=== PATIENT | male | born 1960 | race Caucasian/White ===

== ENCOUNTER 2019-05-16 10:40 | Outpatient (CLI) | payer OTHER, SELFPAY ==
--- NOTE | 2019-05-16 11:21 | XR_ITS ---
WS: [id number] Left shoulder, 2 views, today Clinical Data: PAIN Comparison: None. Findings: No fractures or dislocations are seen. The AC joint is normal. The adjacent left clavicle, left scapu la and ribs are normal. The soft tissues are unremarkable. XR/XR shoulder LT min 2V* [id number] Impression: Negative left shoulder.
--- NOTE | 2019-05-16 11:21 | XR_ITS ---
WS: [id number] FOOT LEFT TECHNIQUE: 2 views of the left foot CLINICAL INFORMATION: PAIN COMPARISON: None. FINDINGS: Osteopenia. Normal anatomic alignment. No acute fractures. Soft tissue edema. Tiny Achilles and plant ar calcaneal spurring. Vascular calcification. XR/XR foot LT 2V [id number] IMPRESSION: Osteopenia. No acute fractures
== END 2019-05-16 10:41 | disposition home or self-care (01) ==
LOC: RAD 10:46
PROVIDERS: Family Provider Nurse Practitioner; Visit Provider Dermatology
DX: M85.872 Other specified disorders of bone density and structure, left ankle and foot (principal); M25.512 Pain in left shoulder; M79.672 Pain in left foot
CPT/HCPCS: 73030; 73620

== ENCOUNTER 2019-09-12 14:14 | Day surgery (SDC) | payer SELFPAY ==
[2019-09-12] VITALS (7 sets, daily range): BP systolic 114–170; BP diastolic 66–104; PULSE 72–89; RESP 16–18; TEMP 36.2–37.3; O2SAT 97–100; BMI 23.7
--- NOTE | 2019-09-12 | SC_ITS ---
WS: [id number] C-arm FL for Urology REASON FOR EXAM: BILAT STENTS///C ARM PICS FINDINGS: Bilateral stent placements. In the mid ureter on the right there appears to be a density consistent with a stone. On the left side there is a stone seen at the pelvis of the kidney. SC/C-arm FL for Urology IMPRESSION: Stent placement and retrograde studies. Stones in the mid right kidney and left pelvis of the kidney.
--- NOTE | 2019-09-12 | SCC_ITS ---
Procedure Done: 1. Cystoscopy with bilateral ureteral stent placement 2. Bilateral retrograde ureteral pyelograms 62.5 seconds of fluoroscopic guidance, for a cumulative dose of 12.38 mGy, was provided to Dr. Siegel by the radiology department. C-arm images of the abdomen were saved for the patient's permanent record. [facility]
--- NOTE | 2019-09-12 14:57 | CT_ITS ---
WS: [id number] CT kidney stone 02622 REASON FOR EXAM: abdominal pain R>L; hx kidney stones IV CONTRAST ADMINISTERED: None. TOTAL EXAM DLP: 1119.[address] scans at [facility] use at least one of these dose optimization techniques: automat ed exposure control; mA and/or kV adjustment per patient size (includes targeted exams where dose is matched to clinical indication); or iterative reconstruction. FINDINGS: Both kidneys are dilated. Both kidneys show calcification along the pelvis and both kidneys and both kidneys show obstructive changes in the ureters the left ureter is dilated greater than the right a stone is seen measured 0.46 cm and on the right side a stone measures 0.01 cm. In the left r enal pelvis a stone measures 8.76 mm is noted. On the right stone measures 7.07 mm. The upper abdomen shows normal appearance of the liver, stomach, spleen, gallbladder, pancreas, right left adrenal glands. The aorta inferior vena cava were normal. CT/CT kidney stone [id number] IMPRESSION: Bilateral obstructive uropathy A large stone is seen in both ureters Both kidneys shows stones.
--- NOTE | 2019-09-12 14:58 | ED_ITS ---
Documented by User: JADE Iverson 09/15/19 07:05 HPI - Abdominal Pain General: Chief Complaint: Abdominal Pain Stated Complaint: possible kidney stone Time Seen by Provider: 09/12/19 14:51 Source: patient Mode of arrival: ambulatory Limitations: no limitations History of Present Illness: HPI narrative: Patient is a 59-year-old male who presents to ED today with a complaint of a probable kidney stone. Patient states he has passed several stones since last month. Patient has pictures of all of the stones. Patient believes it is related to his recent Zonegran that he was placed on. Patient states today he began noticing blood in his urine and began having severe right-sided abdominal pains. He is having trouble urinating due to the discomfort. Has not been running fevers. Reports no vomiting or changes in bowel movements. Associated Symptoms: Reports dysuria and hematuria; Denies chills, diarrhea, fever(s), heartburn, nausea, syncope and vomiting Review of Systems Const: Denies: fever, chills or body aches Eyes: Denies: change in vision or blurry vision Card: Denies: chest pain, palpitations, irregular heart rhythm, lightheadedness, syncope or shortness of breath on exertion Resp: Denies: shortness of breath, productive cough or pain on inspiration GI: Reports: abdominal pain; Denies: nausea, vomiting, heartburn/indigestion or diarrhea : Reports: flank pain, difficulty urinating, painful urination, urinary urgency, urinary hesitancy and blood in urine; Denies: urinary frequency, genital pain, genital lesion, penile discharge, testicular pain or scrotal swelling Musc: Denies: neck pain, back pain (flank pain) or joint pain Skin/Breast: Denies: rash Neuro: Denies: headache, numbness in extremities, weakness in extremities or changes in sensation PFS ED PFSH: Medical History (Updated 09/12/19 @ 18:52 by Satya Ryder MD) Seizures Urolithiasis Social History Smoking and tobacco status: never smoked Physical Exam Const: COMMON NORMALS: average body habitus, oriented x3, no limitations, healthy appearing, alert and well nourished GENERAL APPEARANCE: in distress (appears very uncomfortable secondary to pain) Resp: COMMON NORMALS: normal respiratory effort and clear to auscultation bilaterally AUSCULTATION: clear to auscultation bilaterally Cardio: COMMON NORMALS: regular rate and regular rhythm RATE: regular rate RHYTHM: regular rhythm GI: COMMON NORMALS: no hepatosplenomegaly and no masses AUSCULTATION: Yes normoactive bowel sounds PALPATION: Yes tender (R lower pelvis; mild L sided) and Yes no hepatosplenomegaly : BLADDER/KIDNEY EXAM: Yes CVA tenderness on the right Back/Pelvis: GENERAL BACK: Yes CVA tenderness Extremity: COMMON NORMALS: normal to inspection, no calf tenderness and no pedal edema GENERAL: Yes normal exam except as noted Neuro: COMMON NORMALS: oriented x3, moves all extremities, no focal motor deficits and no sensory deficits noted SENSORIUM/ORIENTATION: Yes alert Skin: COMMON NORMALS: no rashes or lesions noted GENERAL SKIN EXAM: no rashes or lesions noted Course Vital Signs: Vital signs: Vital Signs Temperature 99.2 F 09/12/19 19:49 Pulse Rate 89 09/12/19 20:06 Respiratory Rate 18 09/12/19 20:06 Blood Pressure 114/75 09/12/19 20:06 Pulse Oximetry 100 09/12/19 20:06 MDM - Abdominal Pain MDM Narrative: Medical decision making narrative: CT report initially reporting 0.46cm and 0.01cm R and L ureter stones; after reviewing CT myself these stones look substantially larger; I spoke to Dr. Monaco who re-read pts CT scan and indeed these stones are 6-8mm each in addition to the large stones reported in his renal pelvis; pt will most likely need surgical intervention for these; Dr. Denton made aware and will take over patient and speak to Dr. Siegel Lab Data: Labs: Lab Results 09/12/19 09/12/19 09/12/19 Range/Units 15:19 15:19 16:23 WBC 12.4 H (4.0-10.0) 10^3/ uL RBC 4.70 (4.1-5.3) 10^6/u L Hgb 14.7 (11.7-16.6) g/dL Hct 42.2 (42.0-52.0) % MCV 89.8 (80-94) fL MCH 31.3 (28.0-34.0) pg MCHC 34.8 (30.0-36.0) g/dL RDW 11.9 L (12.1-15.1) % Plt Count 246 (130-400) 10^3/c mm MPV 8.7 (7.4-10.4) fL Neut % (Auto) 89.5 % Lymph % (Auto) 5.7 % [place] % (Auto) 4.3 % Eos % (Auto) 0.0 % Baso % (Auto) 0.3 % Neut # (Auto) 11.1 H (1.8-7.7) 10^3/u L Lymph # (Auto) 0.7 L (0.8-4.8) 10^3/u L [place] # (Auto) 0.5 (0.2-0.9) 10^3/u L Eos # (Auto) 0.0 (0.0-0.8) 10^3/u L Baso # (Auto) 0.0 (0.0-0.1) 10^3/u L Nucleated RBC % (a uto) 0 % Nucleated RBCs # 0.0 /100WBC Sodium 136 (136-145) mmol/L Potassium 4.2 (3.5-5.1) mmol/L Chloride 100 (98-107) mmol/L Carbon Dioxide 22 (22-29) mmol/L Anion Gap 18.2 (5-19) BUN 12 (8-23) mg/dL Creatinine 1.1 (0.7-1.2) mg/dL GFR Calculation 68.3 L (90-130) mL/min Glucose 130 H (65-115) mg/dL Calculated Osmolal ity 280 L (285-295) mOsm/k g Calcium 9.8 (8.5-10.5) mg/dL Total Bilirubin 0.6 (0.15-1.2) mg/dL AST 13 (0-40) U/L ALT 13 (0-41) U/L Alkaline Phosphata se 94 (40-130) IU/L Total Protein 7.8 (6.6-8.7) g/dL Albumin 4.7 (3.5-5.2) g/dL Globulin 3.1 (1.3-4.6) g/dL Urine Color Niki (Yellow) Urine Appearance Hazy A (CLEAR) Urine pH 5 (5-7) Ur Specific Gravit y 1.015 (1.005-1.030) Urine Protein 1+ H (Negative) Urine Glucose (UA) Norm (Normal) Urine Ketones Negative (Negative) Urine Blood 3+ H (Negative) Urine Nitrate Negative (Negative) Urine Bilirubin Neg (NEGATIVE) Urine Urobilinogen Norm (Negative) mg/dL Ur Leukocyte Julieta ase 1+ H (Negative) Urine RBC 25-40 H (0-2) /hpf Urine WBC 5-10 H (0-5) /hpf Ur Squamous Epith Cells 10-15 H (0-5) Urine Bacteria 1+ H (NONE) Urine Mucus 2+ Imaging Data ^: CT Abd/Pel: Radiologist's impression: [address] [place] [address] CT Scan Report Signed Patient: Alec Dumont Unit #: [id number] : 1960 Age/Sex: 59 / M ADM Date: 09/12/19 Loc: ER Room/Bed: Attending Dr: Ordering Provider/Ordering MD: Naomi Williamson Date of Service: 09/12/19 Procedure(s): CT kidney stone [id number] Accession Number(s): [id number] Report Number: [id number] WS: [id number] CT kidney stone [id number] REASON FOR EXAM: abdominal pain R>L; hx kidney stones IV CONTRAST ADMINISTERED: None. TOTAL EXAM DLP: 1119.[address] scans at [facility] use at least one of these dose optimization techniques: automated exposure control; mA and/or kV adjustment per patient size (includes targeted exams where dose is matched to clinical indication); or iterative reconstruction. FINDINGS: Both kidneys are dilated. Both kidneys show calcification along the pelvis and both kidneys and both kidneys show obstructive changes in the ureters the left ureter is dilated greater than the right a stone is seen measured 0.46 cm and on the right side a stone measures 0.01 cm. In the left renal pelvis a stone measures 8.76 mm is noted. On the right stone measures 7.07 mm. The upper abdomen shows normal appearance of the liver, stomach, spleen, gallbladder, pancreas, right left adrenal glands. The aorta inferior vena cava were normal. CT/CT kidney stone [id number] IMPRESSION: Bilateral obstructive uropathy A large stone is seen in both ureters Both kidneys shows stones. Dictated By: Jacob Monaco DO Signed By: Jacob Monaco DO Signed Date/Time: 09/12/19 1516 DD/ 1513 Discharge Plan Discharge Patient Disposition: Home, Self-Care Clinical Impression: Bilateral ureteral calculi Condition: Stable Discharge Orders: Discharge Order (Routine); Ordered 09/12/19 Ordered By: Milton Siegel Discharge Diet: Usual diet Discharge Activity: Increase activity as tolerated Discharge Date/Time: 09/12/19 18:43 Sign Out Sign Out Data: Patient Sign Out occurred on 09/12/19 at 17:48. Patient's care was discussed, and care was transferred from to Kerry Denton MD, [facility] [place] Coding Level of Care Code ED Research Psychologist for [facility] Fwd Exam Comprehensive Documented by User: Kerry Denton MD, MSM 09/12/19 22:51 HPI - Abdominal Pain General: Chief Complaint: Abdominal Pain Stated Complaint: possible kidney stone Time Seen by Provider: 09/12/19 14:51 PFSH ED PFSH: Medical History (Updated 09/12/19 @ 18:52 by Satya Ryder MD) Seizures Urolithiasis Social History Smoking and tobacco status: never smoked Course Consultations: Consultation #1: Dr. Siegel, urologist. He will take the patient to the OR to place stents today and discharge him home as the patient is unwilling to be admitted. He will follow up with him in the clinic. Vital Signs: Vital signs: Vital Signs Temperature 99.2 F 09/12/19 19:49 Pulse Rate 89 09/12/19 20:06 Respiratory Rate 18 09/12/19 20:06 Blood Pressure 114/75 09/12/19 20:06 Pulse Oximetry 100 09/12/19 20:06 MDM - Abdominal Pain MDM Narrative: Medical decision making narrative: 59-year-old gentleman with multiple ureteric calculi causing hydronephrosis. Because of the size of the calculi it is unlikely to be passed so the patient needs surgical intervention. Because the patient is uninsured he was unwilling to be admitted to the hospital for definitive management, but he agreed to have stents placed prior to definitive management. History and examination are documented by the midlevel and refer to her note for the history and examination. Lab Data: Labs: Lab Results 09/12/19 09/12/19 09/12/19 Range/Units 15:19 15:19 16:23 WBC 12.4 H (4.0-10.0) 10^3/ uL RBC 4.70 (4.1-5.3) 10^6/u L Hgb 14.7 (11.7-16.6) g/dL Hct 42.2 (42.0-52.0) % MCV 89.8 (80-94) fL MCH 31.3 (28.0-34.0) pg MCHC 34.8 (30.0-36.0) g/dL RDW 11.9 L (12.1-15.1) % Plt Count 246 (130-400) 10^3/c mm MPV 8.7 (7.4-10.4) fL Neut % (Auto) 89.5 % Lymph % (Auto) 5.7 % [place] % (Auto) 4.3 % Eos % (Auto) 0.0 % Baso % (Auto) 0.3 % Neut # (Auto) 11.1 H (1.8-7.7) 10^3/u L Lymph # (Auto) 0.7 L (0.8-4.8) 10^3/u L [place] # (Auto) 0.5 (0.2-0.9) 10^3/u L Eos # (Auto) 0.0 (0.0-0.8) 10^3/u L Baso # (Auto) 0.0 (0.0-0.1) 10^3/u L Nucleated RBC % (a uto) 0 % Nucleated RBCs # 0.0 /100WBC Sodium 136 (136-145) mmol/L Potassium 4.2 (3.5-5.1) mmol/L Chloride 100 (98-107) mmol/L Carbon Dioxide 22 (22-29) mmol/L Anion Gap 18.2 (5-19) BUN 12 (8-23) mg/dL Creatinine 1.1 (0.7-1.2) mg/dL GFR Calculation 68.3 L (90-130) mL/min Glucose 130 H (65-115) mg/dL Calculated Osmolal ity 280 L (285-295) mOsm/k g Calcium 9.8 (8.5-10.5) mg/dL Total Bilirubin 0.6 (0.15-1.2) mg/dL AST 13 (0-40) U/L ALT 13 (0-41) U/L Alkaline Phosphata se 94 (40-130) IU/L Total Protein 7.8 (6.6-8.7) g/dL Albumin 4.7 (3.5-5.2) g/dL Globulin 3.1 (1.3-4.6) g/dL Urine Color Niki (Yellow) Urine Appearance Hazy A (CLEAR) Urine pH 5 (5-7) Ur Specific Gravit y 1.015 (1.005-1.030) Urine Protein 1+ H (Negative) Urine Glucose (UA) Norm (Normal) Urine Ketones Negative (Negative) Urine Blood 3+ H (Negative) Urine Nitrate Negative (Negative) Urine Bilirubin Neg (NEGATIVE) Urine Urobilinogen Norm (Negative) mg/dL Ur Leukocyte Julieta ase 1+ H (Negative) Urine RBC 25-40 H (0-2) /hpf Urine WBC 5-10 H (0-5) /hpf Ur Squamous Epith Cells 10-15 H (0-5) Urine Bacteria 1+ H (NONE) Urine Mucus 2+ Discharge Plan Discharge Patient Disposition: Home, Self-Care Clinical Impression: Bilateral ureteral calculi Condition: Stable Discharge Orders: Discharge Order (Routine); Ordered 09/12/19 Ordered By: Milton Siegel Discharge Diet: Usual diet Discharge Activity: Increase activity as tolerated Discharge Date/Time: 09/12/19 18:43 Sign Out Sign Out Data: Patient Sign Out occurred on 09/12/19 at 17:48. Patient's care was discussed, and care was transferred from to Kerry Denton MD, MSM. Coding Level of Care Code ED Research Psychologist for [facility] Fwd Exam Comprehensive
[2019-09-12] MEDS: sodium chloride 0.9% 1,000 ML 999 ML IV (15:23)
[2019-09-12] MEDS: ketorolac 60 mg/2 mL INJ 30 MG IVP (15:24)
[2019-09-12] MEDS: orphenadrine 30 mg/mL Inj 2 mL 60 MG IM (15:28)
[2019-09-12 15:57] LABS: Basophils % 0.3 %; Hematocrit 42.2 % (42.0-52.0); Hemoglobin 14.7 g/dL (11.7-16.6); Lymphocytes # 0.7 10^3/uL (0.8-4.8); Lymphocytes % 5.7 %; Mean Corpuscular HGB Conc 34.8 g/dL (30.0-36.0); Mean Corpuscular Hemoglobin 31.3 pg (28.0-34.0); Mean Corpuscular Volume 89.8 fL (80-94); Mean Platelet Volume 8.7 fL (7.4-10.4); Monocytes # 0.5 10^3/uL (0.2-0.9); Monocytes % 4.3 %; Neutrophils # 11.1 10^3/uL (1.8-7.7); Neutrophils % 89.5 %; Nucleated Red Blood Cells % 0 %; Platelet Count 246 10^3/cmm (130-400); Red Cell Distribution Width 11.9 % (12.1-15.1); White Blood Count 12.4 10^3/uL (4.0-10.0)
[2019-09-12 16:11] LABS: Alanine Aminotransferase 13 U/L (0-41); Albumin Level 4.7 g/dL (3.5-5.2); Alkaline Phosphatase 94 IU/L (40-130); Anion Gap 18.2 (5-19); Aspartate Amino Transferase 13 U/L (0-40); Blood Urea Nitrogen 12 mg/dL (8-23); Calcium 9.8 mg/dL (8.5-10.5); Carbon Dioxide 22 mmol/L (22-29); Chloride 100 mmol/L (98-107); Globulin 3.1 g/dL (1.3-4.6); Glomerular Filtration Rate 68.3 mL/min (90-130); Glucose 130 mg/dL (65-115); Osmolality Calculated 280 mOsm/kg (285-295); Potassium 4.2 mmol/L (3.5-5.1); Sodium 136 mmol/L (136-145); Total Bilirubin 0.6 mg/dL (0.15-1.2); Total Protein 7.8 g/dL (6.6-8.7)
[2019-09-12 16:55] LABS: Bilirubin Urine Neg (NEGATIVE); Blood Urine 3+ (Negative); Glucose Urine UA Norm (Normal); Ketones Urine Negative (Negative); Leukocyte Esterase Urine 1+ (Negative); Nitrate Urine Negative (Negative); Protein Urine 1+ (Negative); Specific Gravity, Urine 1.015 (1.005-1.030); Urine Appearance Hazy (CLEAR); Urine Color Amber (Yellow); Urobilinogen Urine Norm (Negative); pH Urine 5 (5-7)
[2019-09-12 16:56] LABS: Add Urine Culture? Yes; Bacteria Urine 1+; Mucus Urine 2+; RBC Urine 25-40 /hpf (0-2)
--- NOTE | 2019-09-12 18:02 | PM.OPSURHP ---
Providers/Chief Complaint Admitting Physician: Christal Primary Care Provider: Ayala Vergara NP Chief Complaint: possible kidney stone History of Present Illness Alec Dumont is a 59 year old male who I first evaluated today in the emergency department at the request of the ER physician. Patient has a history of recurrent stones essentially all of his life. Recently has noted a significant increase in the number of stones passed but with minimal symptoms. Today though he proceeded to the emergency department for complaints of increasing symptoms of stone passage with bilateral flank involvement. CT scan was done and it showed bilateral ureteral obstruction from a 6 mm and 8 mm stone. Thankfully his creatinine was spared at 1.0. We discussed the unusual status of this condition and the significant risk associated with large obstructing bilateral ureteral stones and for that reason after detailed discussion I recommended that we proceed with cystoscopy bilateral ureteral stent placement and if difficulty passing the wire consider attempt at ureteroscopy and possible laser lithotripsy. The plan would be to send him home afterwards and then follow-up on an outpatient basis and make plans accordingly in a more controlled/safe environment. Informed consent was obtained after detailed discussion including benefits risk potential complications and alternatives. Review of Systems Const: Denies: fever or chills Card: Denies: chest pain or palpitations Resp: Denies: shortness of breath, productive cough or non-productive cough GI: Reports: abdominal pain and nausea : Reports: flank pain; Denies: painful urination Psych: Reports: anxiety (Related to the condition.) Madhu/Lymph: Denies: easy bruising or easy bleeding Medications/Allergies Home Medications Medication Instructions Recorded Confirmed Last Taken Type Vitamin C 1 tab PO DAILY 09/12/19 09/12/19 Unknown History Vitamin D3 1 tab PO DAILY 09/12/19 09/12/19 Unknown History tamsulosin [Flomax] 0.4 mg PO DAILY 09/12/19 09/12/19 09/12/19 History zonisamide 400 mg PO DAILY 09/12/19 09/12/19 09/11/19 History Allergies Allergy/AdvReac Type Severity Reaction Status Date / Time No Known Allergies Allergy Unverified 09/12/19 15:26 PFSH PFSH: Medical History (Updated 09/12/19 @ 18:09 by Milton Siegel MD) Urolithiasis Social History Smoking and tobacco status: never smoked Vital Signs Vitals Signs: Last Vital Signs Temp 97.2 F L 09/12/19 14:41 Pulse 77 09/12/19 14:41 Resp 17 09/12/19 16:27 BP 170/104 09/12/19 14:41 Pulse Ox 99 09/12/19 14:41 Weight: Weight last 48 hrs Weight 180 lb Physical Exam Const: COMMON NORMALS: no apparent distress, alert and well nourished GENERAL APPEARANCE: well kempt and well developed ORIENTATION/CONSCIOUSNESS: not confused HENMT: COMMON NORMALS: normocephalic and head/scalp atraumatic Resp: COMMON NORMALS: normal respiratory effort EFFORT & INSPECTION: No labored and No actively coughing AUSCULTATION: clear to auscultation bilaterally Cardio: COMMON NORMALS: no murmurs RATE: regular rate RHYTHM: regular rhythm BRUITS: no carotid bruits Neuro: COMMON NORMALS: no focal motor deficits SENSORIUM/ORIENTATION: Yes alert Psych: COMMON NORMALS: mental status grossly normal APPEARANCE: Yes grossly normal and Yes well kempt ATTITUDE: Yes calm and Yes engaged A&P Assessment and plan (1) Bilateral ureteral calculi: To the operating room emergently tonight for bilateral ureteral stent placement. Endoscopy of the upper tract only if access cannot be easily obtained. Plan on discharge home afterwards Status: Acute (2) Seizures: Status: Acute (3) Urolithiasis: Status: Acute Coding Level of Care Code Acute Forensics Analyst for [facility] Tawnya Diagnoses Bilateral ureteral calculi N20.1 Seizures R56.9 Urolithiasis N20.9
--- NOTE | 2019-09-12 18:51 | ANES.PREANE2 ---
Pre-Anesthetic Assessment Pre-Anesthetic Assessment: Height/Weight: Height 1.85 m Weight 81.647 kg Temp Pulse Resp BP Pulse Ox 97.2 F L 77 17 170/104 99 09/12/19 14:41 09/12/19 14:41 09/12/19 18:11 09/12/19 14:41 09/12/19 14:41 Proposed Procedure: Operation Date: 09/12/19 18:00 Proposed Procedures p Cystoscopy(Not Applicable) - Milton Siegel MD s Ureteral Stent Placement(Not Applicable) - Milton iSegel MD s Flexible Ureteroscopy(Not Applicable) - Milton Siegel MD Social: Social History: No alcohol and No tobacco Exam: Pre-Anes Outpt Exam: alert, oriented x 3, clear to auscultation bilaterally and regular rate & rhythm Airway: Submandibular: WNL Cervical ROM: WNL MP: 2 Dentition: Other (teeth ok) History/ROS: No significant history except as noted Pulmonary: Pulmonary: None reported CV/HEM: CV/HEM: None reported : Comments: stones Hepatic: Hepatic: None reported GI: GI: None reported Metabolic: Metabolic: None reported Musc/skel: Musc/skel: None reported Neuropsych: Neuropsych: Seizure Anesthetic Plan: ASA status: 2E Anesthesia: Anesthesia Evaluation and General PFSH Anesthesia PFSH: Medical History (Updated 09/12/19 @ 18:52 by Satya Ryder MD) Seizures Urolithiasis Social History Smoking and tobacco status: never smoked Data Anesthesia CBC & Chem 7: 09/12/19 15:19 09/12/19 15:19 Other Labs: Laboratory Results - last 48 hr 09/12/19 09/12/19 09/12/19 15:19 15:19 16:23 WBC 12.4 H RBC 4.70 Hgb 14.7 Hct 42.2 MCV 89.8 MCH 31.3 MCHC 34.8 RDW 11.9 L Plt Count 246 MPV 8.7 Neut % (Auto) 89.5 Lymph % (Auto) 5.7 [place] % (Auto) 4.3 Eos % (Auto) 0.0 Baso % (Auto) 0.3 Neut # (Auto) 11.1 H Lymph # (Auto) 0.7 L [place] # (Auto) 0.5 Eos # (Auto) 0.0 Baso # (Auto) 0.0 Nucleated RBC % (auto) 0 Nucleated RBCs # 0.0 Sodium 136 Potassium 4.2 Chloride 100 Carbon Dioxide 22 Anion Gap 18.2 BUN 12 Creatinine 1.1 GFR Calculation 68.3 L Glucose 130 H Calculated Osmolality 280 L Calcium 9.8 Total Bilirubin 0.6 AST 13 ALT 13 Alkaline Phosphatase 94 Total Protein 7.8 Albumin 4.7 Globulin 3.1 Urine Color Niki Urine Appearance Hazy A Urine pH 5 Ur Specific [place] 1.015 Urine Protein 1+ H Urine Glucose (UA) Norm Urine Ketones Negative Urine Blood 3+ H Urine Nitrate Negative Urine Bilirubin Neg Urine Urobilinogen Norm Ur Leukocyte Esterase 1+ H Urine RBC 25-40 H Urine WBC 5-10 H Ur Squamous Epith Cells 10-15 H Urine Bacteria 1+ H Urine Mucus 2+ Cardiac Studies: No Data to Display
--- NOTE | 2019-09-12 18:51 | PM.OP ---
Operative Report Date of procedure: September 12, 2019 Pre-op Diagnosis: Large bilateral ureteral stones with obstruction Post-op diagnosis: same Procedure Done: 1. Cystoscopy with bilateral ureteral stent placement 2. Bilateral retrograde ureteral pyelograms Implants: Bilateral ureteral stents Pathology: none sent Surgeon: Christal Anesthesia: General Estimated blood loss: Minimal Urine output: Not measured Complications: None Findings: Stones in the expected position based on CT scan findings. Bypassed with guidewire and stents without difficulty. Condition: stable Disposition: PACU Brief History: Mr. Dumont is a very pleasant 59-year-old white male who I evaluated for the first time today at the request of the emergency department for bilateral obstructing large ureteral stones and a history of multiple recent stone passages. Despite significant dilation of both ureters and kidneys his renal function was well-preserved. No evidence of infection. It was recommended that he undergo cystoscopy with bilateral ureteral stent placement and then attempt at treatment of the stones after a period of passive dilation with stents Procedure was planned for an outpatient status after ER evaluation. Procedure: After emergent evaluation examination and obtaining of informed consent he was taken to the operating suite on 09/12/2019 where general anesthesia was administered without difficulty after appropriate timeout was performed, SCDs confirmed to be functioning, preoperative antibiotics administered, and beta-emelia protocol confirmed. Prepped and draped in the usual sterile fashion in dorsolithotomy position pain careful attention to avoiding pressure points. 21 [place] cystoscope with 30 degree lens introduced to the urethral meatus and advanced into the bladder under videoscopy. Bladder was systematically examined with no gross pathology identified. No stones were in the bladder. An 8 [place] cone-tipped catheter was intubated in each ureteral orifice and a retrograde ureteropyelogram was performed bilaterally demonstrating normal ureter course and caliber below the stones seen in the expected position as described in the CT scan findings. Ureters proximal to the stones were dilated. A flexible tip guidewire was advanced up the left ureter bypassing the stone and then a 7 [place] by 28 cm double-pigtail stent was advanced over the guidewire through the cystoscope into appropriate position as confirmed via fluoroscopy and cystoscopy. Same procedure was performed on the right side and same result with a 7 [place] by 30 cm stent. No string on either stent. Bladder was drained and the procedure completed. Tolerated procedure well without complications and was awakened in the operating room and returned to recovery in stable condition. PLANS: 1. If he can find a ride home tonight we will send him home and plan for follow-up evaluation in the office otherwise will observe him overnight and send him home tomorrow. 2. We will make definitive plans on follow-up for treatment of the stones after passive dilation. Plain KUB at that time to consider ESWL versus endoscopy.
[2019-09-12] MEDS: iohexol 300 mg/mL 50 mL Btl (OR ONLY) XX (19:33)
[2019-09-12] MEDS: HYDROcodone-acetaminophen 5-325 mg Tablet 1 TAB PO (20:19)
== END 2019-09-12 20:33 | disposition home or self-care (01) ==
LOC: ER 18:12 → OPS 18:40
PROVIDERS: Physician Assistant; Emergency Provider Family Medicine; PCP Nurse Practitioner Family; Visit Provider Urology
PROC: 0TJB8ZZ Inspection of Bladder, Via Natural or Artificial Opening Endoscopic (ICD-10-PCS; CPT 52000; principal; 2019-09-12 18:00)
PROC: (CPT 50605; 2019-09-12 18:00)
PROC: 0TJ98ZZ Inspection of Ureter, Via Natural or Artificial Opening Endoscopic (ICD-10-PCS; CPT 52351; 2019-09-12 18:00)
DX: N20.1 Calculus of ureter (principal); R56.9 Unspecified convulsions; N20.9 Urinary calculus, unspecified
CPT/HCPCS: 52332; 12345; 74176; 76000; 80053; 81001; 85025; 87086; 96372; 96375; 99283; A9270; C2625; J0690; J1885; J2360; J7030

== ENCOUNTER 2019-09-16 13:11 | Outpatient (CLI) | payer SELFPAY ==
--- NOTE | 2019-09-16 13:19 | XR_ITS ---
WS: [id number] ABDOMEN: SUPINE FILM HISTORY: BILATERAL URETERAL CALCULI COMPARISON: None available. Normal bowel gas pattern. Right kidney: Double pigtail RIGHT ureteral stent. 5.8 mm calcification over the lower pole RIGHT kid ken. No ureteral calcification. Left kidney: Double pigtail LEFT ureteral stent. 8.6 mm calcification adjacent to the proximal stent. Additional 5.5 mm calcification lower pole LEFT kidney. XR/XR KUB [id number] IMPRESSION: 1. Interval placement of bilateral double pigtail ureteral stents. 2. Bilateral nephrolithiasis. 3. Proximal LEFT ureteral stent calcification at 8.6 mm.
== END 2019-09-16 13:12 | disposition home or self-care (01) ==
PROVIDERS: Family Provider Nurse Practitioner; Visit Provider Urology
DX: N20.2 Calculus of kidney with calculus of ureter; Z96.0 Presence of urogenital implants
CPT/HCPCS: 74018

== ENCOUNTER 2019-09-25 11:37 | Day surgery (SDC) | payer SELFPAY ==
[2019-09-24 08:33] VITALS: BMI 23.4
[2019-09-25] VITALS (7 sets, daily range): BP systolic 111–141; BP diastolic 84–90; PULSE 69–82; RESP 16–18; TEMP -12.4–37; O2SAT 94–99
--- NOTE | 2019-09-25 | SCC_ITS ---
Procedure Done: 1. Cystoscopy with left ureteral stent removal, flexible and rigid ureteroscopy with laser lithotripsy and stent replacement 2. Right ureteral stent removal, flexible rigid ureteroscopy with laser lithotripsy and stent 86.8 seconds of fluoroscopic guidance, for a cumulative dose of 15.02 mGy, was provided to Dr. Siegel by the radiology department. C-arm images of the abdomen were saved for the patient's permanent record. [facility]
--- NOTE | 2019-09-25 12:10 | XR_ITS ---
WS: [id number] ABDOMEN KUB CLINICAL INFORMATION: Renal/ureteral calculi. COMPARISON: CT September 12, 2019 FINDINGS: Bilateral double-J ureteral stents in place. Stable bilateral renal parenchymal calculi. No ureteral calculi. XR/XR KUB 14633 Impression: Bilateral double-J ureteral stents appear in good position. No uret eral calculi..
[2019-09-25] MEDS: sodium chloride 0.9% 1,000 ML 30 ML IV (12:45)
--- NOTE | 2019-09-25 12:45 | ANES.PREANE2 ---
Pre-Anesthetic Assessment Pre-Anesthetic Assessment: Height/Weight: Height 1.87 m Weight 81.647 kg Temp Pulse Resp BP Pulse Ox 9.7 F L 82 16 111/84 98 09/25/19 12:38 09/25/19 12:38 09/25/19 12:38 09/25/19 12:38 09/25/19 12:38 Preop Diagnosis: Bilateral ureteral/renal calculi Proposed Procedure: Operation Date: 09/25/19 13:00 Proposed Procedures p Laser Lithotripsy(Not Applicable) - Milton Siegel MD s Cystoscopy 46645 N20.1 N20.9(Not Applicable) - Milton Siegel MD s Ureteral Stent Removal(Bilateral) - Milton Siegel MD s Flexible Ureteroscopy(Not Applicable) - Milton Siegel MD s Ureteral Stent Exchange(Not Applicable) - Milton Siegel MD Familial anesthetic complications: None Was Beta Sasha taken within 24 hours: N/A Last intake: Intake Last Liquid Date 09/25/19 Last Liquid Time 07:45 Last Solid Date 09/24/19 Last Solid Time 19:00 Social: Social History: No alcohol and No tobacco Exam: Pre-Anes Outpt Exam: alert, oriented x 3, clear to auscultation bilaterally and regular rate & rhythm Airway: Dentition: Full Neuropsych: Neuropsych: Seizure Anesthetic Plan: ASA status: 2 Anesthesia: General PFSH Anesthesia PFSH: Medical History Seizures Urolithiasis Surgical History History of extraction of renal calculus History of ureter stent Hx of skin graft Family History Father Cancer Social History Smoking and tobacco status: never smoked Alcohol intake: unknown Adopted: No Caregiver/support person: No Lives independently: Yes Marital status: Current occupational status: retired History of recent travel: No Current gender identity: Male Data Anesthesia Cardiac Studies: No Data to Display
--- NOTE | 2019-09-25 12:49 | SC_ITS ---
WS: [id number] INTRAOPERATIVE TECHNIQUE: 3 Spot fluoroscopic images for intraoperative purposes. FLUOROSCOPY TIME: 85.4 seconds CLINICAL INFORMATION: intra-op COMPARISON: None. FINDINGS: Partially visualized bilateral double-J ureteral stents. Stable right renal parenchymal calculus. SC/C-arm FL for Urology IMPRESSION: Images obtained for intraoperative purposes.
--- NOTE | 2019-09-25 13:23 | W.PM.OPSUD ---
Surgery/Procedure H&P Update DATE OF PROCEDURE: September 25, 2019 DATE H&P PERFORMED: 09/16/19 H&P UPDATE INFORMATION: I have reviewed H&P completed within last 30 days, I have examined patient prior to procedure and No changes to prior documentation PREOP DIAGNOSIS: Bilateral ureteral/renal calculi PLANNED PROCEDURE: Operation Date: 09/25/19 13:00 Proposed Procedures p Laser Lithotripsy(Not Applicable) - Milton Siegel MD s Cystoscopy 33684 N20.1 N20.9(Not Applicable) - Milton Siegel MD s Ureteral Stent Removal(Bilateral) - Milton Siegel MD s Flexible Ureteroscopy(Not Applicable) - Milton Siegel MD s Ureteral Stent Exchange(Not Applicable) - Milton Siegel MD
--- NOTE | 2019-09-25 14:33 | PM.OP ---
Operative Report Date of procedure: September 25, 2019 Pre-op Diagnosis: Bilateral ureteral/renal calculi Post-op diagnosis: same Procedure Done: 1. Cystoscopy with left ureteral stent removal, flexible and rigid ureteroscopy with laser lithotripsy and stent replacement 2. Right ureteral stent removal, flexible rigid ureteroscopy with laser lithotripsy and stent Specimens removed/disposition: Stone fragments Pathology: Stone fragments Surgeon: Christal Anesthesia: General Estimated blood loss: Minimal Urine output: Not measured Complications: None Condition: stable Disposition: PACU Brief History: 59 year old male presenting recently with bilateral obstructing ureteral stones and bilateral renal stones. Urgent stenting. Back now for attempt at definitive treatment. We chose endoscopy with hope of both sides treated under one anesthesia Procedure: After routine preoperative evaluation examination and obtaining of informed consent he was taken to the operating suite on 09/25/2019 where general anesthesia was administered without difficulty after appropriate timeout was performed, SCDs confirmed to be functioning, preoperative antibiotics administered, beta-emelia protocol confirmed. Prepped and draped in the usual sterile fashion paying careful attention to avoiding pressure points. 21 Marshallese cystoscope with 30 degree lens was introduced into the urethral meatus and advanced into the bladder under videoscopy. Bladder was systematically examined. No stones were identified. Flexible tip guidewire was advanced up the left ureter next to the LEFT ureteral stent and curled in the upper pole calyx area. The stent was then grasped with grasping forceps and removed. The offset semirigid ureteroscope was then advanced next to the safety wire up the left ureter and the stone seen on previous CT scan was identified in its expected position on fluoroscopy and with ureteroscopy. That stone was then fragmented partially in some of the larger fragments migrated into the renal pelvis. The other calyceal stones were visible on fluoroscopy. A second guidewire was passed with the first wire secured to the drapes as a safety wire and the second wire used as a working wire and the 38 cm ureteral access sheath was easily advanced over the working wire up the left ureter to the area of the proximal ureter. The flexible ureteroscope was then advanced over the guidewire and the guidewire removed. The 365 ?m homing laser fiber which had been utilized to fragment the stone was able to be manipulated through the flexible ureteroscope and the fragments that remained in the renal pelvis were fragmented into very small fragments easily passable. The calyx that housed the remaining stone was identified in the midpole area the scope passed to the stone and it was fragmented as well with a 365 ?m homing laser fiber until it could no longer be identified on fluoroscopy and all the fragments appear to be very small on endoscopy examination. The renal pelvis and remaining calyces were then carefully inspected and no large fragments were identified. Fragmentation was equivalent to successful ESWL. The ureteral access sheath was backed onto the hub of the scope and the scope removed under visualization of the ureter which was found to be mildly edematous but nicely dilated. Because of the bilateral aspect of his stone disease it was decided to leave a stent in temporarily. The cystoscope was then backloaded over the safety wire and a 6 Marshallese by 28 cm double-pigtail stent was advanced over the guidewire up the ureter into appropriate position as confirmed via fluoroscopy and cystoscopy. Attention was then directed to the RIGHT ureter. A flexible tip guidewire was advanced next to the right ureteral stent curling in the upper pole calyx and the stent was removed under fluoroscopic guidance with easy uncurling of the proximal end. The wire was secured to the drapes as a safety wire and then a 7.5 Marshallese offset semirigid ureteroscope was advanced up the right ureter next to the guidewire and the ureter was free of any stones. Fluoroscopy revealed a stone in the midpole area of the kidney. A second guidewire was then passed in the 38 cm ureteral access sheath was advanced over that working wire to the UPJ area. The flexible ureteroscope was then advanced over the guidewire into the renal pelvis and the renal pelvis was carefully inspected along with the calyces. The scope appeared to be looking at the stone seen easily in the midpole area and a correspondingly similar size stone was identified endoscopically and this was fragmented into small pieces as above. Interestingly though the calcification seen what was felt to be in the midpole area in this region was not obviously fragmented. These fragments were then flushed to some degree out with no change in the stone that was seen. An additional stone was seen in a more upper pole calyx and it was also fragmented. Significant amount of time was spent examining all the calyces but the access to the calcification seen in the midpole area was never identified and the stone could not be clearly seen. It was clearly not free in the renal pelvis and I believe the stone(s) likely represented the stone that had been previously identified in the ureter. He was unaware of having passed any stones specifically. After further unsuccessful attempts at identifying the location of the calcification seen on fluoroscopy in the mid polar the possibility was entertained that this might be parenchymal stone or possibly vascular although the remainder of his vascular tree looked very good on his previous CT scan. The access sheath was backed onto the hub of the scope and the scope was removed under direct vision inspecting the ureter with no evidence of significant trauma. Again because of the reason of bilateral involvement of stones with fragments that need to be passed it was decided to leave a stent indwelling temporarily. The cystoscope was then backloaded over the safety wire and a 6 Marshallese by 30 cm double-pigtail [place] stent was passed over the guidewire through the cystoscope into appropriate position as confirmed via fluoroscopy and cystoscopy. The bladder was again reinspected and no significant stones were identified. Bladder was drained and the procedure completed. Stents were confirmed to be functioning. Tolerated the procedure well without complications and was awakened in the operating room and returned to the recovery in stable condition. PLANS: 1. Follow-up at the end of next week for stent removal preceded by KUB.
[2019-09-25] MEDS: levofloxacin-dextrose 5 % 500 MG/100 ML PREMIX 100 MG IV (15:05)
--- NOTE | 2019-09-25 16:55 | SUR.PHASEI ---
1653 PATIENT TO PACU AT THIS TIME. NO DISTRESS. PATIENT RR EVEN AND UNLABORED. SPO2 97% ON SIMPLE MASK AT 8L.
--- NOTE | 2019-09-25 17:16 | SUR.PHASEI ---
1713 PATIENT TO OPS. TOLERATING ICE CHIPS. C/O URINARY PRESSURE, URINAL GIVEN, UNABLE TO VOID.
[2019-09-25] MEDS: phenazopyridine 100 mg Tablet 200 MG PO (17:45)
== END 2019-09-25 18:16 | disposition home or self-care (01) ==
PROVIDERS: PCP Nurse Practitioner Family; Visit Provider Urology
PROC: (CPT 52356; principal; 2019-09-25 13:00)
PROC: 0TJB8ZZ Inspection of Bladder, Via Natural or Artificial Opening Endoscopic (ICD-10-PCS; CPT 52000; 2019-09-25 13:00)
PROC: (CPT 52310; 2019-09-25 13:00)
PROC: 0TJ98ZZ Inspection of Ureter, Via Natural or Artificial Opening Endoscopic (ICD-10-PCS; CPT 52351; 2019-09-25 13:00)
PROC: (CPT 52356; 2019-09-25 13:00)
DX: N20.2 Calculus of kidney with calculus of ureter (principal)
CPT/HCPCS: 52356; 12345; 74018; 76000; 82365; 88300; C2625; J1956; J2704; J2710; J3010; J3490; J7030

== ENCOUNTER → 2019-09-30 11:11 | Outpatient (BNVA) | payer SELFPAY | PROVIDERS: Visit Provider Specialist | DX: R29.90 Unspecified symptoms and signs involving the nervous system (principal); N20.1 Calculus of ureter; G40.109 Localization-related (focal) (partial) symptomatic epilepsy and epileptic syndromes with simple partial seizures, not intractable, without status epilepticus | CPT/HCPCS: 99214 ==

== ENCOUNTER 2019-10-03 08:00 | Outpatient (CLI) | payer SELFPAY | END 2019-10-03 09:00 | disposition home or self-care (01) | LOC: RAD 01-09 11:32 | PROVIDERS: Visit Provider Urology | DX: N20.1 Calculus of ureter (principal) | CPT/HCPCS: 82365 ==

== ENCOUNTER 2019-10-03 08:09 | Outpatient (CLI) | payer SELFPAY ==
--- NOTE | 2019-10-03 08:18 | XRR_ITS ---
PROCEDURE INFORMATION: Exam: XR Abdomen, 1 View Exam date and time: 10/03/2019 8:26 AM Age: 59 years old Clinical indication: Condition or disease; Kidney or ureter condition; Calculus (stone) in kidney; Prior surgery; Surgery type: Kidney stent, date of surgery not provided; Additional info: Renal calculi TECHNIQUE: Imaging protocol: XR of the abdomen. Views: Frontal supine view of the abdomen. 1 View. COMPARISON: SC XR KUB [id number] 09/16/2019 1:24 PM FINDINGS: Tubes, catheters and devices: Bilateral double-J catheters. Gastrointestinal tract: Prominent stool. Intraperitoneal space: Incomplete visualization of the superior most abdomen. Organs: Residual 6 mm calcification overlying the lower pole left kidney, suggesting urolithiasis. Previously visualized 6 mm calcification overlying the right renal fossa is not clearly reproduced on the current study, although evaluation is somewhat limited by overlying bowel gas and stool. Vasculature: Punctate pelvic vascular calcification. Bones/joints: Mild degenerative change. XR/XR KUB [id number] IMPRESSION: Previously visualized 6 mm calcification overlying the right renal fossa is not clearly reproduced on the current study, although evaluation is somewhat limited by overlying bowel gas and stool.
== END 2019-10-03 08:10 | disposition home or self-care (01) ==
LOC: RAD 08:12
PROVIDERS: Visit Provider Urology
DX: N20.0 Calculus of kidney (principal)
CPT/HCPCS: 74018

== ENCOUNTER → 2019-12-16 09:03 | Outpatient (BNVA) | payer SELFPAY | PROVIDERS: Visit Provider Specialist | DX: G40.109 Localization-related (focal) (partial) symptomatic epilepsy and epileptic syndromes with simple partial seizures, not intractable, without status epilepticus (principal) | CPT/HCPCS: 99212 ==

== ENCOUNTER 2019-12-23 12:52 | Outpatient (CLI) | payer SELFPAY ==
--- NOTE | 2019-12-23 13:00 | XR_ITS ---
WS: [id number] EXAM: ABDOMINAL KUB DATE OF EXAMINATION: 12/23/2019, 1309 hours COMPARISON: Intraoperative spot images from 09/25/2019 abdominal KUB from the same date. HISTORY: Patient is 59 years old with history of bilateral kidney stones. Follow-up. FINDINGS: Since the prior KUB bilateral double-J ureteral stents have been removed. Calcification overlying the inferior left kidney silhouette again seen. Similar in appearance. Calcification overlying the right kidney silhouette also similar. No calcifications along the course of the ureters. Bowel gas pattern is normal. There is a slightly amount of increased stool demonstrated. XR/XR KUB [id number] IMPRESSION: Interval removal of bilateral double-J ureteral stents. Calcification overlying both kidneys silhouettes similar in location and size.
== END 2019-12-23 12:53 | disposition home or self-care (01) ==
LOC: RAD 12:54
PROVIDERS: Visit Provider Urology
DX: N20.9 Urinary calculus, unspecified (principal); Z96.0 Presence of urogenital implants; N20.0 Calculus of kidney
CPT/HCPCS: 74018; 81001

== ENCOUNTER 2020-03-31 14:55 | Outpatient (CLI) | payer SELFPAY ==
--- NOTE | 2020-03-31 15:05 | XR_ITS ---
WS: [id number] XR KUB [id number] REASON FOR EXAM: BILATERAL RENAL STONES FINDINGS: Compared to the previous examination of 10/03/2019, the solitary right renal and solitary left renal c alculi are unchanged in position and size. Bilateral ureteral stents have been previously removed. No new findings. XR/XR KUB [id number] IMPRESSION: Bilateral renal calculi unchanged.
== END 2020-03-31 14:56 | disposition home or self-care (01) ==
PROVIDERS: Visit Provider Urology
DX: N20.0 Calculus of kidney (principal)
CPT/HCPCS: 74018

== ENCOUNTER → 2020-03-31 15:38 | Outpatient (BNVA) | payer SELFPAY | PROVIDERS: Visit Provider Urology | DX: N20.0 Calculus of kidney (principal) | CPT/HCPCS: 81003 ==

== ENCOUNTER → 2020-04-05 14:01 | Outpatient (BNVA) | payer SELFPAY | PROVIDERS: Visit Provider Urology | DX: N20.0 Calculus of kidney (principal) | CPT/HCPCS: 87635 ==

== ENCOUNTER 2020-04-12 11:30 | Day surgery (SDC) | payer SELFPAY ==
[2020-04-12] MEDS: sodium chloride 0.9% 1,000 ML 30 ML IV (12:25)
--- NOTE | 2020-04-12 12:27 | ANES.PREANE2 ---
Pre-Anesthetic Assessment Pre-Anesthetic Assessment: Height/Weight: Height 1.85 m Preop Diagnosis: Bilateral ureteral/renal calculi Proposed Procedure: Operation Date: 04/12/20 12:25 Proposed Procedures p [id number] 25403 N21.0 N20.2(Not Applicable) - Milton Siegel MD s Cystoscopy(Not Applicable) - Milton Siegel MD s Ureteral Stent Placement(Not Applicable) - Milton Siegel MD Familial anesthetic complications: none Was Beta Sasha taken within 24 hours: N/A Social: Social History: No alcohol and No tobacco Exam: Pre-Anes Outpt Exam: alert, oriented x 3, clear to auscultation bilaterally and regular rate & rhythm Airway: Cervical ROM: WNL MP: 2 Dentition: Full Neuropsych: Neuropsych: Seizure Anesthetic Plan: ASA status: 2 Anesthesia: General Risk of > 500 ml blood loss (7ml/kg in children): No PFSH Anesthesia PFSH: Medical History Bilateral renal stones Seizures Urolithiasis Surgical History History of extraction of renal calculus History of ureter stent Hx of skin graft Family History Father Cancer THROAT AND TONGUE Mother , AT AGE 74 Alcohol abuse Social History Smoking and tobacco status: never smoked Alcohol intake: never Adopted: No Caregiver/support person: No Lives independently: Yes Marital status: Current occupational status: retired History of recent travel: No Current gender identity: Male Data Anesthesia Cardiac Studies: No Data to Display
[2020-04-12 12:29] VITALS: BMI 23.7
--- NOTE | 2020-04-12 12:34 | W.PM.OPSUD ---
Surgery/Procedure H&P Update DATE OF PROCEDURE: April 12, 2020 DATE H&P PERFORMED: 09/16/19 H&P UPDATE INFORMATION: I have reviewed H&P completed within last 30 days, I have examined patient prior to procedure, No changes to prior documentation and H&P is in [facility] EMR on date indicated PREOP DIAGNOSIS: Bilateral ureteral/renal calculi PLANNED PROCEDURE: Operation Date: 04/12/20 12:25 Proposed Procedures p [id number] 96758 N21.0 N20.2(Not Applicable) - Milton Siegel MD s Cystoscopy(Not Applicable) - Milton Siegel MD s Ureteral Stent Placement(Not Applicable) - Milton Siegel MD
[2020-04-12] MEDS: levofloxacin-dextrose 5 % 500 MG/100 ML PREMIX 100 MG IV (14:44)
--- NOTE | 2020-04-12 14:44 | PM.OP ---
Operative Report Date of procedure: April 12, 2020 Pre-op Diagnosis: Right renal calculus Post-op diagnosis: same Procedure Done: 1. Extracorporeal shockwave lithotripsy right renal calculus, NO STENT Pathology: none sent Surgeon: Christal Folder Operator: Lithotripsy Application Development Intern: Suzanne Anesthesia: General Estimated blood loss: Minimal Urine output: Not measured Complications: None Findings: Stone easily identified with biplanar fluoroscopy. Total of 2500 shocks administered to the stone with good change Condition: stable Disposition: PACU Brief History: Alec is a very pleasant 60-year-old white male who was originally seen earlier this year with bilateral URETERAL obstruction secondary to renal calculi. Stones were treated. He was also known to have multiple bilateral RENAL renal calculi. He originally had selected to observe the renal calculi but over time changed his mind and wanted to try to become stone free due to the risks associated as demonstrated previously with bilateral ureteral obstruction. Admitted now for a ESWL with or without stent. Procedure: After routine preoperative evaluation examination and obtaining of informed consent he was taken to the operating suite on 04/12/2020 where general anesthesia was administered without difficulty after appropriate timeout was performed, SCDs confirmed to be functioning, preoperative antibiotics administered, beta-emelia protocol confirmed. Positioned on the Dornier unit in supine position paying careful attention to avoiding pressure points. Utilizing biplanar fluoroscopy the stone was positioned at the focal point. Shockwave therapy was initiated at a rate of 70 and an intensity of 1 with advancement to an intensity of 4. After approximately 300 shocks a several minute pause was conducted. Change occurred early. Once it was noted at approximately 800 shocks the rate was increased to 90. A total of 2500 shocks were administered with good change. Based on the degree of change it was decided to NOT leave a stent. Tolerated the procedure well without complications and was awakened in the operating room and returned to the care of room in stable condition. Associated Problem List Diagnoses (1) Bilateral renal stones:
[2020-04-12 15:29] VITALS: BP 130/76; PULSE 78; RESP 18; TEMP 36.1; O2SAT 100
[2020-04-12 15:35] VITALS: BP 127/74; PULSE 78; RESP 18; O2SAT 100
[2020-04-12 15:40] VITALS: BP 123/77; PULSE 78; RESP 16; TEMP 36.6; O2SAT 97
[2020-04-12 15:52] VITALS: BP 130/85; PULSE 83; RESP 18; TEMP 36.6; O2SAT 97
[2020-04-12 16:37] VITALS: BP 125/80; PULSE 67; RESP 18; O2SAT 99
--- NOTE | 2020-04-12 16:54 | ANE.PACU2 ---
Inpatient post-anesthesia follow up: Airway intact: Yes Vital signs: Temperature 97.8 F Pulse Rate 67 Respiratory Rate 18 Blood Pressure 125/80 Pulse Oximetry 99 Oxygen Delivery Me thod Room Air Oxygen Flow Rate 8 Fraction of Inspir ed Oxygen Hydration adequate: Yes Nausea and vomiting: No Pain level: 2 Mental status: Baseline
== END 2020-04-12 16:50 | disposition home or self-care (01) ==
LOC: OR 17:12
PROVIDERS: Visit Provider Urology
PROC: (CPT 50590; principal; 2020-04-12 12:25)
DX: Z79.891 Long term (current) use of opiate analgesic (principal); N20.2 Calculus of kidney with calculus of ureter; Z87.442 Personal history of urinary calculi; Z80.0 Family history of malignant neoplasm of digestive organs; Z86.69 Personal history of other diseases of the nervous system and sense organs
CPT/HCPCS: 50590; 12345; J1956; J2704; J3010; J3490; J7030

== ENCOUNTER 2020-04-19 07:15 | Outpatient (CLI) | payer SELFPAY ==
--- NOTE | 2020-04-19 11:53 | XR_ITS ---
WS: [id number] XR KUB [id number] REASON FOR EXAM: BILATERAL RENAL STONES FINDINGS: Urinary calculus or cluster of small calculi present in the right and the left kidney. No change from 03/31/2020. Large amount of stool in the colon. No free air or retroperitoneal air. Lumbar spine and bony pelvis are unremarkable. XR/XR KUB [id number] IMPRESSION: Stable renal calculi as above.
== END 2020-04-19 07:16 | disposition home or self-care (01) ==
LOC: RAD 07:17
PROVIDERS: Visit Provider Urology
DX: N20.0 Calculus of kidney (principal)
CPT/HCPCS: 74018; 81003; 82365; 87635; 88300

== ENCOUNTER 2020-04-26 12:58 | Day surgery (SDC) | payer SELFPAY ==
[2020-04-23 13:44] VITALS: BMI 24.0
[2020-04-26] VITALS (8 sets, daily range): BP systolic 128–136; BP diastolic 78–86; PULSE 75–89; RESP 12–18; TEMP 36.4–37.1; O2SAT 97–100
--- NOTE | 2020-04-26 13:05 | XRR_ITS ---
PROCEDURE INFORMATION: Exam: XR Abdomen, 1 View Exam date and time: 04/26/2020 1:19 PM Age: 60 years old Clinical indication: Screening exam; Other: Preop eswl left TECHNIQUE: Imaging protocol: XR of the abdomen. Views: Frontal supine view of the abdomen. 1 View. COMPARISON: CR XR KUB [id number] 04/19/2020 7:29 AM FINDINGS: Gastrointestinal tract: Normal. No bowel dilation. There is calcific density present in the lower pole collecting system left kidney consistent with a caliceal stone. This finding measures 8.7 mm. Bones/joints: Unremarkable. XR/XR KUB [id number] IMPRESSION: No acute findings. Stable caliceal stone lower pole left kidney
[2020-04-26] MEDS: sodium chloride 0.9% 1,000 ML 30 ML IV (13:39)
--- NOTE | 2020-04-26 13:51 | W.PM.OPSUD ---
Surgery/Procedure H&P Update DATE OF PROCEDURE: April 26, 2020 DATE H&P PERFORMED: 04/19/20 H&P UPDATE INFORMATION: I have reviewed H&P completed within last 30 days, I have examined patient prior to procedure, No changes to prior documentation and H&P is in [facility] EMR on date indicated CHANGES TO PREVIOUS DOCUMENTATION: Since the office visit he performed postural percussion to try to shake lose the right remaining fragments and passed a lot of pieces. Today's KUB shows that there is no obvious residual stone fragments in the right kidney. For that reason we can avoid placing a stent prior to treating the left stone. The original plan was to place a stent on the left side to avoid bilateral ureteral occlusion if he had not cleared the fragments from the right. PREOP DIAGNOSIS: Left renal calculus PLANNED PROCEDURE: Operation Date: 04/26/20 14:30 Proposed Procedures p Cystoscopy 14169 35676 n20.0(Left) - Milton Siegel MD s Ureteral Stent Placement(Not Applicable) - Milton Siegel MD s ESWL(Not Applicable) - Milton Siegel MD
--- NOTE | 2020-04-26 14:25 | ANES.PREANE2 ---
Pre-Anesthetic Assessment Pre-Anesthetic Assessment: Height/Weight: Height 1.87 m Weight 83.915 kg Temp Pulse Resp BP Pulse Ox 98 F 75 16 136/85 100 04/26/20 13:27 04/26/20 13:27 04/26/20 13:27 04/26/20 13:27 04/26/20 13:27 Preop Diagnosis: Left renal calculus Proposed Procedure: Operation Date: 04/26/20 14:30 Proposed Procedures p Cystoscopy 30821 38549 n20.0(Left) - Milton Siegel MD s Ureteral Stent Placement(Not Applicable) - Milton Siegel MD s ESWL(Not Applicable) - Milton Siegel MD Was Beta Sasha taken within 24 hours: N/A Last intake: Intake Last Liquid Date 04/26/20 Last Liquid Time 07:30 Last Solid Date 04/24/20 Last Solid Time 22:00 Social: Social History: No alcohol and No tobacco Exam: Pre-Anes Outpt Exam: alert, oriented x 3, clear to auscultation bilaterally and regular rate & rhythm Airway: Submandibular: WNL Cervical ROM: WNL MP: 2 Dentition: Full Pulmonary: Pulmonary: None reported CV/HEM: CV/HEM: None reported : Comments: Stones Hepatic: Hepatic: None reported GI: GI: None reported Metabolic: Metabolic: None reported Musc/skel: Musc/skel: None reported Neuropsych: Neuropsych: Seizure Anesthetic Plan: ASA status: 2 Anesthesia: General Risk of > 500 ml blood loss (7ml/kg in children): No Meds/Allergies Current Medications: Current Medications Generic Name Dose Route Start Last Admin Trade Name Freq PRN Reason Stop Dose Admin Sodium Chloride 1,000 mls @ 30 ml s/hr 04/26/20 13:15 04/26/20 13:39 Sodium Chloride 0.9% IV 04/27/20 13:14 30 mls/hr .Q24H MALICK Administration PFSH Anesthesia PFSH: Medical History Bilateral renal stones Seizures Urolithiasis Surgical History History of extraction of renal calculus History of ureter stent Hx of skin graft Family History Father Cancer THROAT AND TONGUE Mother , AT AGE 74 Alcohol abuse Social History Smoking and tobacco status: never smoked Alcohol intake: never Adopted: No Caregiver/support person: No Lives independently: Yes Marital status: Current occupational status: retired History of recent travel: No Current gender identity: Male Data Anesthesia Cardiac Studies: No Data to Display
--- NOTE | 2020-04-26 14:54 | P.OP_ITS ---
Operative Report Date of procedure: April 26, 2020 Pre-op Diagnosis: Left renal calculus Post-op diagnosis: same Procedure Done: 1. Extracorporeal shockwave lithotripsy left lower pole calculus Pathology: none sent Surgeon: Christal Correspondence Representative: Lithotripsy [employer] Sewing Machine Operator: Trevon Palacios Estimated blood loss: None Urine output: Not measured Complications: None Findings: Left lower pole calculus easily identified. Received 2500 shocks with good change. Condition: stable Disposition: PACU Brief History: After routine preoperative evaluation examination and obtaining of informed consent taken to the operating room on 04/26/2020 where general anesthesia was administered without difficulty after appropriate timeout was performed, SCDs confirmed to be functioning, preoperative antibiotics administered, beta-emelia protocol confirmed. Position in supine position on the Dornier unit such that the stone was located at the focal point. Shockwave therapy was initiated at a rate of 60 and advanced to a rate of 90. Intensity was begun at 1 and advanced to 4 with a several minute pause after approximately 300 shocks. Significant change was noted.
--- NOTE | 2020-04-26 16:04 | SUR.PHASEI ---
1604-ORAL AIRWAY OUT, SIMPLE MASK IN PLACE AT 6LPM SAT 100%
--- NOTE | 2020-04-26 17:01 | ANE.PACU2 ---
Inpatient post-anesthesia follow up: Airway intact: Yes Vital signs: Temperature 97.5 F Pulse Rate 84 Respiratory Rate 18 Blood Pressure 128/78 Pulse Oximetry 98 Oxygen Delivery Me thod Room Air Oxygen Flow Rate 6 Fraction of Inspir ed Oxygen Hydration adequate: Yes Nausea and vomiting: No Pain level: 1 Mental status: Baseline
== END 2020-04-26 17:12 | disposition home or self-care (01) ==
PROVIDERS: Visit Provider Urology
PROC: (CPT 50590; 2020-04-26 14:30)
DX: N20.0 Calculus of kidney (principal)
CPT/HCPCS: 50590; 12345; 74018; J0690; J1100; J2250; J2405; J2704; J2710; J3010; J3490; J7030

== ENCOUNTER 2020-05-04 15:09 | Outpatient (CLI) | payer SELFPAY ==
--- NOTE | 2020-05-04 15:15 | XR_ITS ---
WS: [id number] Exam: XR KUB [id number] Date/Time of Exam: 05/04/2020 3:20 PM Reason For Exam: RENAL STONES Comparison 04/26/2020. 8 mm calcification superimposes the lower pole the left kidney. No other renal calcifications are aftab ntified. No bowel obstruction or free air. Moderate amount retained stool in the colon. Visualized or robbin margins are intact. XR/XR KUB [id number] IMPRESSION: 1. 8 mm calcification superimposing the lower pole left kidney apparently repre senting the patient's known renal stone. 2. No acute abdominal finding. Constipation.
== END 2020-05-04 15:10 | disposition home or self-care (01) ==
LOC: RAD 15:13
PROVIDERS: Visit Provider Urology
DX: N20.0 Calculus of kidney (principal); K59.00 Constipation, unspecified
CPT/HCPCS: 74018; 81003

== ENCOUNTER → 2020-06-08 09:52 | Outpatient (BNVA) | payer SELFPAY | PROVIDERS: Visit Provider Specialist | DX: G40.109 Localization-related (focal) (partial) symptomatic epilepsy and epileptic syndromes with simple partial seizures, not intractable, without status epilepticus (principal) | CPT/HCPCS: 99213 ==

== ENCOUNTER 2020-11-07 10:17 | Emergency (ER) | payer SELFPAY ==
[2020-11-07 11:02] VITALS: BP 128/77; PULSE 68; RESP 14; TEMP 36.5; O2SAT 97; BMI 24.3
--- NOTE | 2020-11-07 11:34 | XRR_ITS ---
PROCEDURE INFORMATION: Exam: XR Left Hand Exam date and time: 11/07/2020 11:34 AM Age: 60 years old Clinical indication: Injury or trauma; Other: Cut finger with table saw; Laceration; Left; Index finger; Additional info: Laceration of second digit from table saw TECHNIQUE: Imaging protocol: XR Left hand. Views: 3 or more views. COMPARISON: No relevant prior studies available. FINDINGS: Bones/joints: There is comminuted fracture and partial amputation of the tuft of the distal phalanx of the index finger. Soft tissues: There is soft tissue laceration through the tip of the index finger. XR/XR hand LT min 3V* [id number] IMPRESSION: Comminuted fracture and partial amputation of the tuft of the distal phalanx of the index finger.
--- NOTE | 2020-11-07 13:19 | ED_ITS ---
Documented by User: JADE Queen 11/07/20 16:32 HPI - Wound/Laceration General: Chief Complaint: Wound/Laceration Stated Complaint: Cut pointer finger to bone Time Seen by Provider: 11/07/20 13:14 History of Present Illness: HPI narrative: Patient is a 60-year-old male who comes to the ED with laceration to finger. Injury occurred just prior to arrival. Patient says he was using a table saw and cut his left second digit near the end of finger. After cut he ran water over laceration and then bandaged it up. He says he is up-to-date on his tetanus. Associated symptoms: Denies chills, fever(s), nausea or vomiting Review of Systems Const: Denies: fever(s), chills or fatigue Eyes: Denies: change in vision or eye discomfort ENMT: Denies: throat pain, odynophagia, nasal discharge or nasal congestion Card: Denies: chest pain, palpitations, edema, swelling of feet/ankles, dyspnea on exertion or orthopnea Resp: Denies: dyspnea, productive cough or non-productive cough GI: Denies: abdominal pain, nausea, vomiting, diarrhea, constipation or hematochezia : Denies: flank pain, difficulty urinating, dysuria or hematuria Musc: Denies: neck pain, back pain or extremity swelling Skin/Breast: Reports: new lesions (2nd digit left hand laceration); Denies: rash Neuro: Denies: headache(s), numbness in extremities or weakness in extremities PFS ED PFSH: Medical History Bilateral renal stones Seizures Urolithiasis Surgical History History of extraction of renal calculus History of ureter stent Hx of skin graft Family History Father Cancer THROAT AND TONGUE Mother , AT AGE 74 Alcohol abuse Social History Smoking and tobacco status: never smoked Alcohol intake: never Adopted: No Caregiver/support person: No Lives independently: Yes Marital status: Current occupational status: retired History of recent travel: No Current gender identity: Male Physical Exam Const: COMMON NORMALS: no acute distress, patient oriented x3, healthy appearing and alert GENERAL APPEARANCE: cooperative and comfortable HENMT: COMMON NORMALS: normocephalic HEAD & SCALP: normocephalic MOUTH: Normal oral and palatal mucosa present THROAT: posterior oropharynx normal and uvula midline Neck/C-Spine: COMMON NORMALS: supple GENERAL: Yes normal visual inspection Resp: COMMON NORMALS: normal respiratory effort, No retractions, No use of accessory muscles and clear to auscultation bilaterally AUSCULTATION: clear to auscultation bilaterally Cardio: COMMON NORMALS: regular rate, regular rhythm, S1 normal heart sound present, S2 normal heart sound present, No gallops present (Cardio), No clicks present (Cardio), No murmurs present (Cardio) and Peripheral pulses 2+ throughout RATE: regular rate RHYTHM: regular rhythm HEART SOUNDS: S1 normal heart sound present and S2 normal heart sound present PERIPHERAL PULSES: Peripheral pulses 2+ throughout GI: COMMON NORMALS: Normal to inspection, nondistended, normoactive bowel sounds present, Soft to palpation, non-tender and no masses PALPATION: Yes Soft to palpation : COMMON NORMALS: Yes no CVA tenderness BLADDER/KIDNEY EXAM: Yes no CVA tenderness Back/Pelvis: COMMON NORMALS: no CVA tenderness Extremity: NARRATIVE EXTREMITY EXAM: Left hand?second digit?linear laceration approximately 1 cm in length. It involves the nailbed as well. Minimal active bleeding noted. Soft tissue at tip of nail was still well intact and minimally damaged. Full range of motion in second digit. GENERAL: Yes normal exam except as noted Neuro: COMMON NORMALS: patient oriented x3 and moves all extremities SENSORIUM/ORIENTATION: Yes alert Skin: NARRATIVE SKIN EXAM: Left hand?second digit?linear laceration approximately 1 cm in length. It involves the nailbed as well. Minimal active bleeding noted.Soft tissue at tip of nail was still well intact and minimally damaged. GENERAL SKIN EXAM: dry skin Procedures Laceration Laceration 1: Site: hand (2nd digit) Side (If applicable): left Size (cm): 1 Description: linear Depth: simple, single layer Local Anesthetic: lidocaine 2% (digital block) Pre-repair: irrigated extensively (With normal saline and iodine wash) Skin layer closed with: nylon and other (I use some Dermabond to help close nailbed laceration.) Size (cm): 4-0 Number of sutures: 5 Technique: simple, interrupted Nerve Block Nerve Block 1: Time out performed: Yes Local Anesthetic: lidocaine 2% Amount of anesthesia used (mL): 10 Side: left Nerve Blocks: digital (2nd digit) Procedure Successful: Yes Patient Tolerated Procedure: well Complications: none Course ED course: I had Dr. Cannon come in and evaluate laceration site with me and he agreed with my evaluation of suturing up laceration and referring patient to a hand specialist for out patient clinic follow-up. Vital Signs: Vital signs: Vital Signs Temperature 97.7 F 11/07/20 11:02 Pulse Rate 68 11/07/20 11:02 Respiratory Rate 14 11/07/20 11:02 Blood Pressure 128/77 11/07/20 11:02 Pulse Oximetry 97 11/07/20 11:02 MDM - Wound/Laceration MDM Narrative: Medical decision making narrative: Patient is a 60-year-old male who comes to the ED with a table saw injury to left index finger. Patient has a 1 cm linear laceration that involves the nailbed and the skin of the distal tip of second digit. He has full range of motion and second digit. Soft tissue at tip of nail was still well intact and minimally damaged. X-ray of left hand showed a comminuted fracture and partial amputation of the tuft of distal phalanx of the second digit. Patient's laceration was irrigated extensively with normal saline and iodine wash. I then used 5 sutures and some Dermabond to help close up laceration. Patient was given dose of cephalexin while here in the ED. I placed an order with case management for patient to be referred to hand specialist for outpatient follow-up. Patient was discharged home and bandage and finger splint. He was sent home with a prescription for cephalexin and hydrocodone 5/325 mg 8 tablets for pain. He was given instructions on how to care for finger at home. I told him case management will contact him in the next several days to set up an appointment with a hand specialist for outpatient follow-up. Return to ED precautions given. Patient understood agree with plan. Imaging Data^: Xray Ortho: Attestation: I personally reviewed and interpreted this imaging study as follows: Radiologist's impression: [address] [place] [address] XRay Report Signed Patient: Alec Dumont Unit #: [id number] : 1960 Age/Sex: 60 / M ADM Date: 11/07/20 Loc: ER Room/Bed: Attending Dr: Ordering Provider/Ordering MD: Pillo Juan Date of Service: 11/07/20 Procedure(s): XR hand LT min 3V* [id number] Accession Number(s): [id number] Report Number: [id number] PROCEDURE INFORMATION: Exam: XR Left Hand Exam date and time: 11/07/2020 11:34 AM Age: 60 years old Clinical indication: Injury or trauma; Other: Cut finger with table saw; Laceration; Left; Index finger; Additional info: Laceration of second digit from table saw TECHNIQUE: Imaging protocol: XR Left hand. Views: 3 or more views. COMPARISON: No relevant prior studies available. FINDINGS: Bones/joints: There is comminuted fracture and partial amputation of the tuft of the distal phalanx of the index finger. Soft tissues: There is soft tissue laceration through the tip of the index finger. XR/XR hand LT min 3V* [id number] IMPRESSION: Comminuted fracture and partial amputation of the tuft of the distal phalanx of the index finger. Dictated By: Arvin Ames Signed By: Arvin Ames Signed Date/Time: 11/07/20 1313 DD/ 1311 Discharge Plan Discharge Patient Disposition: Home Clinical Impression: Fracture of distal phalanx of finger Qualifiers: Encounter type: initial encounter Finger: index finger Fracture type: open Fracture alignment: nondisplaced Laterality: left Qualified Code(s): S62.661B - Nondisplaced fracture of distal phalanx of left index finger, initial encounter for open fracture Laceration of finger Qualifiers: Encounter type: initial encounter Finger: index finger Damage to nail status: with damage Foreign body presence: without foreign body Laterality: left Qualified Code(s): S61.311A - Laceration without foreign body of left index finger with damage to nail, initial encounter Laceration of nail bed of finger Qualifiers: Encounter type: initial encounter Qualified Code(s): S61.319A - Laceration without foreign body of unspecified finger with damage to nail, initial encounter Condition: Stable Prescriptions: New cephalexin 500 mg capsule 500 mg PO Q6H 10 Days Qty: 40 RF: 0 No Action lamotrigine [Lamictal] 200 mg tablet 200 mg PO BID Qty: 60 RF: 3 lamotrigine [Lamictal] 100 mg tablet 50 mg PO DAILY Qty: 45 RF: 2 Vitamin C 1 tab PO DAILY RF: 0 Vitamin D3 1 tab PO DAILY RF: 0 lamotrigine 150 mg Tablet 150 mg PO BID RF: 0 Vitamin C 250 mg Tablet 1 mg PO DAILY RF: 0 Vitamin D3 125 mcg (5,000 unit) Tablet 1 unit PO DAILY RF: 0 Discharge Orders: Discharge ED (Routine); Ordered 11/07/20 Ordered By: Pillo Juan Discharge Diet: Regular Discharge Activity: Limit activity as instructed Patient Instructions: Fractures - Phalanx (Finger), Finger Laceration (ED), Opioid Safety Activity Restrictions/Additional Instructions: Case management will contact you in the next several days to set up an appointme nt with a hand specialist for further evaluation. Take full course of antibiotics as prescribed. Wear finger splint daily. Keep laceration site clean and dry for the next 48 hours. Then after that you can clean and re-bandage daily. Watch for signs of infection such as redness, warmth, increased tenderness and puslike drainage. If you see the signs of infection return to the ED, urgent care or PCP for reevaluation. call your PCP to schedule a follow- up appointment for reevaluation and suture removal in about 10 days. Continue taking all home meds. Follow discharge plans as discussed. You can return to the ED if symptoms worsen. 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 [employer] Fwd Exam Comprehensive Documented by User: Satish Cannon MD 11/11/20 11:05 HPI - Wound/Laceration General: Chief Complaint: Wound/Laceration Stated Complaint: Cut pointer finger to bone Time Seen by Provider: 11/07/20 13:14 PFSH ED PFSH: Medical History Bilateral renal stones Seizures Urolithiasis Surgical History History of extraction of renal calculus History of ureter stent Hx of skin graft Family History Father Cancer THROAT AND TONGUE Mother , AT AGE 74 Alcohol abuse Social History Smoking and tobacco status: never smoked Alcohol intake: never Adopted: No Caregiver/support person: No Lives independently: Yes Marital status: Current occupational status: retired History of recent travel: No Current gender identity: Male Course Vital Signs: Vital signs: Vital Signs Temperature 97.7 F 11/07/20 11:02 Pulse Rate 68 11/07/20 11:02 Respiratory Rate 14 11/07/20 11:02 Blood Pressure 128/77 11/07/20 11:02 Pulse Oximetry 97 11/07/20 11:02 Discharge Plan Discharge Patient Disposition: Home Clinical Impression: Fracture of distal phalanx of finger Qualifiers: Encounter type: initial encounter Finger: index finger Fracture type: open Fracture alignment: nondisplaced Laterality: left Qualified Code(s): S62.661B - Nondisplaced fracture of distal phalanx of left index finger, initial encounter for open fracture Laceration of finger Qualifiers: Encounter type: initial encounter Finger: index finger Damage to nail status: with damage Foreign body presence: without foreign body Laterality: left Qualified Code(s): S61.311A - Laceration without foreign body of left index finger with damage to nail, initial encounter Laceration of nail bed of finger Qualifiers: Encounter type: initial encounter Qualified Code(s): S61.319A - Laceration without foreign body of unspecified finger with damage to nail, initial encounter Condition: Stable Prescriptions: New cephalexin 500 mg capsule 500 mg PO Q6H 10 Days Qty: 40 RF: 0 No Action lamotrigine [Lamictal] 200 mg tablet 200 mg PO BID Qty: 60 RF: 3 lamotrigine [Lamictal] 100 mg tablet 50 mg PO DAILY Qty: 45 RF: 2 Vitamin C 1 tab PO DAILY RF: 0 Vitamin D3 1 tab PO DAILY RF: 0 lamotrigine 150 mg Tablet 150 mg PO BID RF: 0 Vitamin C 250 mg Tablet 1 mg PO DAILY RF: 0 Vitamin D3 125 mcg (5,000 unit) Tablet 1 unit PO DAILY RF: 0 Discharge Orders: Discharge ED (Routine); Ordered 11/07/20 Ordered By: Pillo Juan Discharge Diet: Regular Discharge Activity: Limit activity as instructed Patient Instructions: Fractures - Phalanx (Finger), Finger Laceration (ED), Opioid Safety Activity Restrictions/Additional Instructions: Case management will contact you in the next several days to set up an appointment with a hand specialist for further evaluation. Take full course of antibiotics as prescribed. Wear finger splint daily. Keep laceration site clean and dry for the next 48 hours. Then after that you can clean and re-bandage daily. Watch for signs of infection such as redness, warmth, increased tenderness and puslike drainage. If you see the signs of infection return to the ED, urgent care or PCP for reevaluation. call your PCP to schedule a follow- up appointment for reevaluation and suture removal in about 10 days. Continue taking all home meds. Follow discharge plans as discussed. You can return to the ED if symptoms worsen. 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
[2020-11-07] MEDS: cephALEXin 500 mg Capsule PO (13:47)
[2020-11-07] MEDS: lidocaine 2% INJ 20 mL INJECTION (13:47)
--- NOTE | 2020-11-09 09:37 | DCPLANNER ---
Addendum entered by Veronica Wooten 11/26/20 10:23: reimbursement manager called the [facility] to confirm if a follow appointment had been scheduled for patient. reimbursement manager was told that the physician at [facility] refused to see this patient, and that the patient was notified. Addendum entered by Veronica Wooten 11/10/20 11:15: Ortho clinic called shoe parts caser and informed shoe parts caser that after review of patients chart, that patient will need to follow up with a hand specialist in [place]. reimbursement manager called patient and asked patient if he would like for the referral to go to [facility] or [facility]. Patient stated that he would like for shoe parts caser to send the referral to [facility]. reimbursement manager faxed patients information to the [facility]. Original Note: reimbursement manager had message to schedule a follow up appointment for patient with ortho for a distal phalanx saw injury. reimbursement manager called the ortho clinic, spoke with Susannah, gave clinic patients information. reimbursement manager was told that patients information would be printed and reviewed. Clinic will call patient with appointment information.
== END 2020-11-07 16:23 | disposition home or self-care (01) ==
PROVIDERS: Emergency Provider Physician Assistant
DX: S62.661B Nondisplaced fracture of distal phalanx of left index finger, initial encounter for open fracture (principal); S61.311A Laceration without foreign body of left index finger with damage to nail, initial encounter; W27.0XXA Contact with workbench tool, initial encounter
CPT/HCPCS: 11760; 73130; 99283; A6446

== ENCOUNTER → 2020-12-07 08:40 | Outpatient (BNVA) | payer SELFPAY | PROVIDERS: Visit Provider Specialist | DX: G40.109 Localization-related (focal) (partial) symptomatic epilepsy and epileptic syndromes with simple partial seizures, not intractable, without status epilepticus (principal); R41.3 Other amnesia; Z79.899 Other long term (current) drug therapy | CPT/HCPCS: 96116; 99214 ==

== ENCOUNTER 2020-12-17 15:34 | Outpatient (CLI) | payer SELFPAY ==
--- NOTE | 2020-12-17 16:00 | MR_ITS ---
WS: [id number] MRI BRAIN WITHOUT CONTRAST HISTORY: G40.109 - Localization-related (focal) (partial) symptomatic. COMPARISON: None available. TECHNIQUE: Diffusion imaging, multiplanar T1, T2 and FLAIR imaging obtained. No evidence for acute infarct or hemorrhage. Granados-white matter differentiation is normal. Symmetric a ppearance of the hippocampal formations. No atrophy or increased signal. No signal abnormality or foc al cortical dysplasia identified. No remote or acute infarcts are volume loss. Ventricles and extra-axial spaces are normal. No inferior displacement of cerebellar tonsils. The sella turcica and pituitary gland are unremarkabl e. Dural venous sinuses and [place] demonstrate no abnormality on this unenhanced studies. Paranasal sinuses: Clear. Mastoid air cells: Normal. Calvarium and scalp: Intact. MR/MR head wo con* [id number] IMPRESSION: 1. Unremarkable MRI brain noncontrast. 2. Symmetric appearance of the hippocampal formations and no focal cortical dy splasia.
== END 2020-12-17 15:35 | disposition home or self-care (01) ==
LOC: RADSHAW 15:39
PROVIDERS: Visit Provider Specialist
DX: G40.109 Localization-related (focal) (partial) symptomatic epilepsy and epileptic syndromes with simple partial seizures, not intractable, without status epilepticus (principal)
CPT/HCPCS: 70551

== ENCOUNTER → 2020-12-28 09:55 | Outpatient (BNVA) | payer SELFPAY | PROVIDERS: Visit Provider Specialist | DX: G40.109 Localization-related (focal) (partial) symptomatic epilepsy and epileptic syndromes with simple partial seizures, not intractable, without status epilepticus (principal) | CPT/HCPCS: 80175 ==

== ENCOUNTER → 2021-01-11 10:29 | Outpatient (BNVA) | payer SELFPAY | PROVIDERS: Visit Provider Specialist | DX: G40.109 Localization-related (focal) (partial) symptomatic epilepsy and epileptic syndromes with simple partial seizures, not intractable, without status epilepticus (principal) | CPT/HCPCS: 95816 ==

== ENCOUNTER → 2021-03-07 07:59 | Outpatient (BNVA) | payer SELFPAY | PROVIDERS: Visit Provider Specialist | DX: G40.109 Localization-related (focal) (partial) symptomatic epilepsy and epileptic syndromes with simple partial seizures, not intractable, without status epilepticus (principal) | CPT/HCPCS: 99213; 99214 ==

== ENCOUNTER 2021-04-20 14:38 | Outpatient (CLI) | payer SELFPAY ==
--- NOTE | 2021-04-20 14:44 | XR_ITS ---
WS: [id number] XR KUB [id number] REASON FOR EXAM: RENAL STONES FINDINGS: No free air or retroperitoneal air. Large amount of fecal material and gas overlie the kidneys. The previously demonstrated calculus in l ower pole left kidney is not readily identifiable. No other urinary tract calculi are in the abdomen or pelvis. No other significant abnormality identified. XR/XR KUB [id number] IMPRESSION: No urinary tract calculi identified. Likely, overlying bowel gas and fecal material obscure the previously demonstra spencer calculus in the lower left kidney.
== END 2021-04-20 14:39 | disposition home or self-care (01) ==
LOC: RAD 14:41
PROVIDERS: Visit Provider Urology
DX: N20.0 Calculus of kidney (principal)
CPT/HCPCS: 74018; 81003

== ENCOUNTER → 2024-07-01 09:00 | Outpatient (BNVA) | payer MEDICARE, SELFPAY | PROVIDERS: PCP Nurse Practitioner Family; Visit Provider Nurse Practitioner Family | DX: Z13.6 Encounter for screening for cardiovascular disorders (principal); Z12.5 Encounter for screening for malignant neoplasm of prostate | CPT/HCPCS: 80053; 80061; 85025; G0103 ==

== ENCOUNTER → 2024-10-01 14:06 | Outpatient (BNVA) | payer MEDICARE, SELFPAY | PROVIDERS: Visit Provider Specialist | DX: G40.109 Localization-related (focal) (partial) symptomatic epilepsy and epileptic syndromes with simple partial seizures, not intractable, without status epilepticus (principal) | CPT/HCPCS: 99212 ==